=== PATIENT | female | born 1950 | race Caucasian/White ===

== ENCOUNTER 2018-01-31 23:49 | Emergency (ER) | payer MEDICARE, BC ==
[2018-02-01 00:18] VITALS: BP 120/74
--- NOTE | 2018-02-01 00:35 | ED Physician Documentation ---
General Adult - HISTORIAN Historian: patient - HPI Stated Complaint: rectal bleeding Chief Complaint: General Adult Additional Information: Noticed blood in her stool this evening. Typically has daily bowel movement, but last normal bowel movement was 2-3 days ago. Took one Dulcolax tab today then strained very hard to have bowel movement. Noticed a few little clots in her stool afterwards. Recalls that >9 years ago, she had blood in her stool and a UTI. She has low abdominal aching and cramping. No fever, dysuria or frequency. No other modifying factors or associated signs. - ROS CONST: no problems - PAST HX Past History: other (OA, especially left knee) Allergies/Adverse Reactions: Allergies Allergy/AdvReac Type Severity Reaction Status Date / Time No Known Allergies Allergy Verified 02/01/18 00:18 Home Medications: Ambulatory Orders Medication Instructions Recorded Docusate Sodium [Colace] 100 mg PO BID #20 02/01/18 Nitrofurantoin Monohyd/M-Cryst 100 mg PO BID #14 capsule 02/01/18 [Macrobid 100 mg Capsule] - SOCIAL HX Smoking History: non-smoker - FAMILY HX Family History: No - VITAL SIGNS Vital Signs: Vital Signs Temp Pulse Resp BP Pulse Ox 98.2 F 78 16 120/74 97 01/31/18 23:50 01/31/18 23:50 01/31/18 23:50 01/31/18 23:50 01/31/18 23:50 - REVIEWED ASSESSMENTS Nursing Assessment Reviewed: Yes Vitals Reviewed: Yes General Adult Physical Exam - PHYSICAL EXAM GENERAL APPEARANCE: no distress EENT: ENT inspection normal (upper bridge), pharynx normal, no signs of dehydration, other (disconjugate eyes) NECK: normal inspection RESPIRATORY: no resp distress, breath sounds normal CVS: reg rate & rhythm, heart sounds normal ABDOMEN: soft, normal bowel sounds, tenderness (lower abdomen sohail) RECTAL: normal rectal tone, heme positive stool, hemorrhoids BACK: normal inspection, no CVA tenderness, other (no vertebral tenderness) SKIN: warm/dry, normal color EXTREMITIES: normal range of motion (gait and stance), no evidence of injury NEURO: CN's nml as tested, motor nml, sensation nml Discharge Clincal Impression: Internal hemorrhoids Urinary tract infection Qualifiers: Urinary tract infection type: acute cystitis Hematuria presence: with hematuria Qualified Code(s): N30.01 - Acute cystitis with hematuria Constipation Qualifiers: Constipation type: unspecified constipation type Qualified Code(s): K59.00 - Constipation, unspecified Prescriptions: Docusate Sodium [Colace] 100 mg PO BID #20 Nitrofurantoin Monohyd/M-Cryst [Macrobid 100 mg Capsule] 100 mg PO BID #14 capsule Referrals: Ofe Bansal MD [Primary Care Provider] - 2 Days Condition: Stable Disposition: 01 HOME, SELF-CARE Decision to Admit: NO Decision Time: 23:50
[2018-02-01] MEDS ORDERED: NITROFURANTOIN 100 MG CAPSULE PO ONE (00:56)
[2018-02-01 05:40] LABS: OCCULT BLOOD,URINE 2+ (NEGATIVE); PH URINE 5.5 (5.0 - 8.0)
[2018-02-01 05:41] LABS: UROBILINOGEN URINE 0.2 Eu (0.2-1.0)
[2018-02-01 05:46] LABS: APPEARANCE,URINE CLOUDY (CLEAR); COLOR,URINE CL (YELLOW)
== END 2018-02-01 01:10 | disposition home or self-care (01) ==
LOC: ED 23:49
DX: N30.01 Acute cystitis with hematuria (principal); K59.00 Constipation, unspecified; K64.9 Unspecified hemorrhoids
CPT/HCPCS: 81002; 82272; 87086; 99283